=== PATIENT | female | born 1975 | race African-American/Black ===

== ENCOUNTER 2016-07-06 11:08 | Emergency (ER) | payer MEDICAID ==
[~2016-07-06] VITALS: Ht 170.2 cm; Wt 80.0 kg
[2016-07-06] MEDS ORDERED: ARIP2TAB9 PO (11:14)
[2016-07-06] MEDS ORDERED: ACETAMINOPHEN 325MG TABLET PO ONE (11:45)
[2016-07-06 14:20] VITALS: BP 114/73
== END 2016-07-06 14:23 | disposition home or self-care (01) ==
LOC: ER 11:41
DX: R51 Headache (principal); Z79.899 Other long term (current) drug therapy; Y04.2XXA Assault by strike against or bumped into by another person, initial encounter
CPT/HCPCS: 70486; 81025; 99284

== ENCOUNTER 2025-03-06 22:59 | Emergency (ER) | payer MEDICAID ==
[~2025-03-06] VITALS: Ht 172.7 cm; Wt 78.0 kg
[~2025-03-06 22:59] MED LIST: ARIP2TAB3 PO
[2025-03-06 23:00] VITALS: TEMP 98.2; O2SAT 98
[2025-03-06] MEDS ORDERED: ONDANSETRON HCL 4MG TABLET PO ONE (23:45)
[2025-03-06] MEDS ORDERED: ACETAMINOPHEN 325MG TABLET PO ONE (23:45)
[2025-03-07 00:12] VITALS: BP 114/60; PULSE 96; RESP 13
[2025-03-07] MEDS: ONDANSETRON HCL 4MG/2ML INJ IM ONE (00:12)
[2025-03-07] MEDS: KETOROLAC 15MG/ML VIAL IM ONE (00:12)
[2025-03-07 01:01] LABS: CREATININE 0.7 mg/dL (0.6-1.0); UREA NITROGEN BLOOD 12 mg/dL (9-23)
[2025-03-07 01:02] LABS: HCG SCREEN NEGATIVE; PROTEIN TOTAL 7.6 g/dL (6.0-8.3); TROPONIN I HIGH SENSITIVITY < 4 ng/L (3.0-34)
[2025-03-07 01:03] LABS: ASPARTATE AMINOTRANSFERASE 26 IU/L (<34); BILIRUBIN DIRECT 0.6 mg/dL (<=3.0)
[2025-03-07 01:04] LABS: BILIRUBIN TOTAL 2.2 mg/dL (0.1-1.0)
[2025-03-07 01:08] LABS: HEMATOCRIT. 29.3 % (36.0-48.0); HEMOGLOBIN. 9.1 g/dL (12.0-16.0); MEAN PLATELET VOLUME 9.7 fl (7.4-10.4); PLATELET 264 x1000/uL (130-400); RED BLOOD CELL COUNT 4.54 mill/uL (4.2-5.4); RED CELL DISTRIBUTION WIDTH 27.5 % (11.6-14.6)
[2025-03-07 02:16] LABS: EOSINOPHILS % MANUAL 5.0 % (0.0-5.0); LYMPHOCYTES % MANUAL 35.0 % (20.0-60.0); MONOCYTES % MANUAL 5.0 % (2.0-8.0); NEUTROPHILS % MANUAL 55.0 % (45.0-75.0); PLATELET ESTIMATE NORMAL
[2025-03-07] MEDS ORDERED: NAPR-1176 MT (02:45)
== END 2025-03-07 03:21 | disposition home or self-care (01) ==
LOC: ER 22:59
DX: R10.9 Unspecified abdominal pain (principal); Z98.890 Other specified postprocedural states
CPT/HCPCS: 36415; 93005; 99285; 80076; 80048; 84703; 85025; 84484; 74176; 96372; J1885; J2405; Z7610